=== PATIENT | female | born 1955 | race Caucasian/White ===

== ENCOUNTER 2019-06-28 16:20 | Emergency (ER) | payer OTHER ==
[2019-06-28] MEDS ORDERED: LIDOCAINE 1% MPF 5 ML VIAL ONE ×2 (16:46→17:01)
[2019-06-28] MEDS ORDERED: ACETAMINOPHEN 325 MG TABLET ONE (17:01)
--- NOTE | 2019-06-28 17:25 | RAD REPORT ---
EXAM DESCRIPTION: CT - Head Brain Wo Cont - 06/28/2019 5:01 pm CLINICAL HISTORY: Head injury status post fall. Headache COMPARISON: None. TECHNIQUE: Computed axial tomography of the head was obtained. IV contrast was not requested. All CT scans are performed using dose optimization technique as appropriate and may include automated exposure control or mA/KV adjustment according to patient size. FINDINGS: An intracranial bleed is not seen . The ventricles are normal in caliber. No extra-axial fluid collection is noted. Fluid within the sinuses/ mastoids is not seen. IMPRESSION: No acute intracranial abnormality is seen. If patient's symptoms persist MRI of the bra in would be recommended.
--- NOTE | 2019-06-28 17:26 | RAD REPORT ---
EXAM DESCRIPTION: RAD - Hand Right 3 View - 06/28/2019 5:11 pm CLINICAL HISTORY: Right hand pain status post injury FINDINGS: A mildly displaced fracture proximal aspect of the fifth proximal phalanx with angulation present at the fracture site. No dislocation
--- NOTE | 2019-06-28 17:59 | EDPHYS ---
Physician Documentation [facility] Name: Arpita Santo Age: 64 yrs Sex: Female : 1955 Arrival Date: 06/28/2019 Time: 16:22 Bed 24 Private MD: Dm Jolly E ED Physician Stan Beebe HPI: 06/28 16:45 This 64 yrs old Female presents to ER via Ambulatory with complaints of Fall pm1 Injury. 16:45 Details of fall: The patient fell from an upright position, while walking. Onset: The pm1 symptoms/episode began/occurred just prior to arrival. Associated injuries: The patient sustained injury to the head, laceration, right little finger, deformity, heel of right hand, abrasion. The patient has not experienced similar symptoms in the past. Patient was walking on the sidewalk, looked up and then tripped on uneven concrete. Hit her head on the sidewalk and braced her fall with right hand. Presenting with deformed right 5th finger and laceration above right lateral eyebrow. No LOC, neck pain, vomiting. Positive for headache at the laceration area. Historical: - Allergies: 16:33 No Known Allergies; sv - Home Meds: 16:33 timoxiphen [Active]; Effexor Oral [Active]; macaroot [Active]; sv - PMHx: 16:33 RLS; sv - PSHx: 16:33 left mastectomy; ear; Knee surgery; oral; sv - Immunization history:: Flu vaccine is up to date. - Social history:: Smoking status: Patient/guardian denies using tobacco. - Ebola Screening: : No symptoms or risks identified at this time. ROS: 16:48 Constitutional: Negative for fever, chills, and weight loss, Eyes: Negative for injury, pm1 pain, redness, and discharge, ENT: Negative for injury, pain, and discharge, Neck: Negative for injury, pain, and swelling, Cardiovascular: Negative for chest pain, palpitations, and edema, Respiratory: Negative for shortness of breath, cough, wheezing, and pleuritic chest pain, Abdomen/GI: Negative for abdominal pain, nausea, vomiting, diarrhea, and constipation, Back: Negative for injury and pain. 16:48 MS/extremity: Positive for deformity, pain, of the right little finger, Negative for paresthesias, tingling. 16:48 Skin: Positive for abrasion(s), of the heel of right hand and laceration above right eyebrow. 16:48 Neuro: Positive for headache, Negative for dizziness, numbness, weakness. Exam: 16:48 Constitutional: This is a well developed, well nourished patient who is awake, alert, pm1 and in no acute distress. 16:48 Eyes: Pupils equal round and reactive to light, extra-ocular motions intact. Lids and lashes normal. Conjunctiva and sclera are non-icteric and not injected. Cornea within normal limits. Periorbital areas with no swelling, redness, or edema. ENT: Nares patent. No nasal discharge, no septal abnormalities noted. Tympanic membranes are normal and external auditory canals are clear. Oropharynx with no redness, swelling, or masses, exudates, or evidence of obstruction, uvula midline. Mucous membranes moist. Neck: Trachea midline, no thyromegaly or masses palpated, and no cervical lymphadenopathy. Supple, full range of motion without nuchal rigidity, or vertebral point tenderness. No Meningismus. Chest/axilla: Normal chest wall appearance and motion. Nontender with no deformity. No lesions are appreciated. Cardiovascular: Regular rate and rhythm with a normal S1 and S2. No gallops, murmurs, or rubs. Normal PMI, no JVD. No pulse deficits. Respiratory: Lungs have equal breath sounds bilaterally, clear to auscultation and percussion. No rales, rhonchi or wheezes noted. No increased work of breathing, no retractions or nasal flaring. Abdomen/GI: Soft, non-tender, with normal bowel sounds. No distension or tympany. No guarding or rebound. No evidence of tenderness throughout. Back: No spinal tenderness. No costovertebral tenderness. Full range of motion. 16:48 Head/face: Noted is no obvious of injury or deformity except a laceration(s), 2 cm(s), of the outer aspect of right eyebrow. 16:48 Skin: Appearance: normal except for affected area, injury, abrasion(s), small abrasion noted, of the heel of right hand, laceration(s), the wound is approximately 2 cm(s), of the outer aspect of right eyebrow. Vital Signs: 16:30 BP 114 / 76; Pulse 76; Resp 20; Temp 98.4; Pulse Ox 99% ; rv 16:33 Weight 78.02 kg; Height 5 ft. 7 in. (170.18 cm); Pain 3/10; sv 18:00 BP 123 / 95; Pulse 80; Resp 16; Pulse Ox 100% ; rv 16:33 Body Mass Index 26.94 (78.02 kg, 170.18 cm) sv Procedures: 16:58 Reduction: of the right little finger, using traction, Patient tolerated well. digital pm1 block with lidocaine 1%, 1 mL. Laceration: 17:52 Wound Repair of 1.5cm ( 0.6in ) subcutaneous laceration to outer aspect of right pm1 eyebrow. Irregularly shaped.. Distal neuro/vascular/tendon intact. Anesthesia: Local anesthetic administered with 1 mls of 1% lidocaine. Wound prep: Extensive cleansing with hibiclenz by nurse, Wound irrigation with saline by nurse, Wound explored extensively, Copious irrigation. Skin closed with 6 6-0 Prolene using simple sutures and sterile technique. Dressed with Neosporin. Patient tolerated well. MDM: 16:33 Patient medically screened. pm1 16:48 Data reviewed: vital signs. Data interpreted: Pulse oximetry: on room air is 99 %. pm1 Interpretation: normal. 16:48 ED course: Patient does not want any medication for pain other than tylenol. pm1 17:52 Counseling: I had a detailed discussion with the patient and/or guardian regarding: the pm1 historical points, exam findings, and any diagnostic results supporting the discharge/admit diagnosis, radiology results, the need for outpatient follow up, to return to the emergency department if symptoms worsen or persist or if there are any questions or concerns that arise at home. 06/28 16:41 Order name: CT Head Brain wo Cont; Complete Time: 17:51 pm1 06/28 16:41 Order name: Hand Right 3 View XRAY; Complete Time: 17:51 pm1 Administered Medications: 16:57 Not Given (recent vaccination): Tetanus-Diphtheria Toxoid Adult 0.5 ml IM once rv 17:21 Drug: Tylenol 650 mg Route: PO; rv 18:23 Follow up: Response: No adverse reaction rv 17:33 Drug: Lidocaine (1 %) 5 ml Volume: 5 ml; Route: Infiltration; rv 18:23 Follow up: Response: No adverse reaction rv Disposition: 18:30 Co-signature as Attending Physician, Stan Beebe MD. rn Disposition: 06/28/19 17:58 Discharged to Home. Impression: Laceration without foreign body of other part of head - right eyebrow, Displaced fracture of proximal phalanx of right little finger, Abrasion of hand. - Condition is Stable. - Discharge Instructions: Cast or Splint Care, Adult, Finger Fracture, Head Injury, Adult, Facial Laceration. - Prescriptions for Tylenol- Codeine #3 300-30 mg Oral Tablet - take 2 tablets by ORAL route every 6 hours As needed; 20 tablet. - Medication Reconciliation Form, Thank You Letter, Antibiotic Education, Prescription Opioid Use form. - Follow up: Emergency Department; When: As needed; Reason: Worsening of condition. Follow up: Private Physician; When: 4-5 days; Reason: Recheck today's complaints, Continuance of care, Re-evaluation by your physician. Follow up: Bradley Chaudhari MD; When: 2 - 3 days; Reason: Recheck today's complaints, Continuance of care, Re-evaluation by your physician. - Problem is new. - Symptoms have improved. - Notes: Please get the sutures on your face removed in 4-5 days Signatures: Dispatcher [employer] EDSheridan Miller, RN Stan Iverson MD MD rn Marinas, Patrick, ALLIE [employer]ING [employer]TER HELPER pm1 Song Lacy RN RN rv Corrections: (The following items were deleted from the chart) 18:09 17:58 06/28/2019 17:58 Discharged to Home. Impression: Laceration without foreign body pm1 of other part of head - right eyebrow; Displaced fracture of proximal phalanx of right little finger; Abrasion of hand. Condition is Stable. Forms are Medication Reconciliation Form, Thank You Letter, Antibiotic Education, Prescription Opioid Use. Follow up: Emergency Department; When: As needed; Reason: Worsening of condition. Follow up: Private Physician; When: 4-5 days; Reason: Recheck today's complaints, Continuance of care, Re-evaluation by your physician. Problem is new. Symptoms have improved. pm1 18:24 18:09 06/28/2019 17:58 Discharged to Home. Impression: Laceration without foreign body rv of other part of head - right eyebrow; Displaced fracture of proximal phalanx of right little finger; Abrasion of hand. Condition is Stable. Discharge Instructions: Cast or Splint Care, Adult, Finger Fracture, Head Injury, Adult, Facial Laceration. Prescriptions for Tylenol-Codeine #3 300-30 mg Oral Tablet - take 2 tablets by ORAL route every 6 hours As needed; 20 tablet. and Forms are Medication Reconciliation Form, Thank You Letter, Antibiotic Education, Prescription Opioid Use. Follow up: Emergency Department; When: As needed; Reason: Worsening of condition. Follow up: Private Physician; When: 4-5 days; Reason: Recheck today's complaints, Continuance of care, Re-evaluation by your physician. Follow up: Bradley Chaudhari; When: 2 - 3 days; Reason: Recheck today's complaints, Continuance of care, Re-evaluation by your physician. Problem is new. Symptoms have improved. pm1
--- NOTE | 2019-06-28 17:59 | ER ---
Nurse's Notes [facility] Name: Arpita Santo Age: 64 yrs Sex: Female : 1955 Arrival Date: 06/28/2019 Time: 16:22 Bed 24 Private MD: Dm Jolly E Diagnosis: Laceration without foreign body of other part of head-right eyebrow;Displaced fracture of proximal phalanx of right little finger;Abrasion of hand Presentation: 06/28 16:29 Presenting complaint: Patient states: was walking outside and stubbed her toe on the sv ground, fell down; right eyebrow laceration, right hand laceration with pain, reports disorientation for a little bit, denies LOC. Care prior to arrival: None. Mechanism of Injury: Fall from standing position. Trauma event details: Injury occurred in the [facility], Injury occurred: outside Injury occurred: June 28, 2019. 16:29 Acuity: CASSANDRA 3 sv 16:29 Method Of Arrival: Ambulatory sv 17:04 Transition of care: patient was not received from another setting of care. Onset of rv symptoms was June 28, 2019 at 16:30. Risk Assessment: Do you want to hurt yourself or someone else? Patient reports no desire to harm self or others. Initial Sepsis Screen: Does the patient meet any 2 criteria? No. Patient's initial sepsis screen is negative. Does the patient have a suspected source of infection? No. Patient's initial sepsis screen is negative. Trauma Activation: Not Applicable Physician: ED Physician; Name: ; Notified At: ; Arrived At: Physician: General Surgeon; Name: ; Notified At: ; Arrived At: Physician: Radiology; Name: ; Notified At: ; Arrived At: Physician: Respiratory; Name: ; Notified At: ; Arrived At: Physician: Lab; Name: ; Notified At: ; Arrived At: Historical: - Allergies: 16:33 No Known Allergies; sv - Home Meds: 16:33 timoxiphen [Active]; Effexor Oral [Active]; macaroot [Active]; sv - PMHx: 16:33 RLS; sv - PSHx: 16:33 left mastectomy; ear; Knee surgery; oral; sv - Immunization history:: Flu vaccine is up to date. - Social history:: Smoking status: Patient/guardian denies using tobacco. - Ebola Screening: : No symptoms or risks identified at this time. Screenin:04 Abuse screen: Denies threats or abuse. Denies injuries from another. Nutritional rv screening: No deficits noted. Tuberculosis screening: No symptoms or risk factors identified. Fall Risk None identified. Assessment: 16:29 General: Appears in no apparent distress. comfortable, Behavior is calm, cooperative. rv Pain: Complains of pain in face and right arm. Neuro: Level of Consciousness is awake, alert, obeys commands, Oriented to person, place, time, situation. Cardiovascular: Patient's skin is warm and dry. Respiratory: Airway is patent. GI: No signs and/or symptoms were reported involving the gastrointestinal system. : No signs and/or symptoms were reported regarding the genitourinary system. EENT: No signs and/or symptoms were reported regarding the EENT system. Derm: Wound noted outer aspect of right eyebrow. Musculoskeletal: dislocated finger, 5th digit of the right hand. Vital Signs: 16:30 BP 114 / 76; Pulse 76; Resp 20; Temp 98.4; Pulse Ox 99% ; rv 16:33 Weight 78.02 kg; Height 5 ft. 7 in. (170.18 cm); Pain 3/10; sv 18:00 BP 123 / 95; Pulse 80; Resp 16; Pulse Ox 100% ; rv 16:33 Body Mass Index 26.94 (78.02 kg, 170.18 cm) sv ED Course: 16:22 Patient arrived in ED. mr 16:22 Dm Jolly MD is Private Physician. mr 16:29 Song Lacy RN is Primary Nurse. rv 16:31 Triage completed. sv 16:33 Anderson Sherman NP is PHCP. pm1 16:33 Stan Beebe MD is Attending Physician. pm1 16:34 Arm band placed on. sv 17:00 CT completed. Patient tolerated procedure well. Patient moved back from CT. bq 17:00 CT Head Brain wo Cont In Process Unspecified. EDMS 17:02 Assist provider with reduction of right little finger using manipulation, Set up for rv procedure. Performed by Anderson Sherman NP Immobilized with finger splint, Patient tolerated well. Patient did not have IV access during this emergency room visit. 17:05 Patient has correct armband on for positive identification. Bed in low position. Call rv light in reach. Side rails up X 1. Adult w/ patient. Pulse ox on. NIBP on. 17:10 Hand Right 3 View XRAY In Process Unspecified. EDMS 17:36 Assist provider with laceration repair on outer aspect of right eyebrow that was 2.5 rv cm. or less using sutures. Set up tray. Performed by Anderson Sherman ACCOUNT COLLECTOR Dressed with Patient tolerated well. 18:09 Bradley Chaudhari MD is Referral Physician. pm1 Administered Medications: 16:57 Not Given (recent vaccination): Tetanus-Diphtheria Toxoid Adult 0.5 ml IM once rv 17:21 Drug: Tylenol 650 mg Route: PO; rv 18:23 Follow up: Response: No adverse reaction rv 17:33 Drug: Lidocaine (1 %) 5 ml Volume: 5 ml; Route: Infiltration; rv 18:23 Follow up: Response: No adverse reaction rv Outcome: 17:58 Discharge ordered by MD. pm1 18:22 Discharged to home ambulatory, with family. rv 18:22 Condition: improved 18:22 Discharge instructions given to patient, Instructed on discharge instructions, follow up and referral plans. medication usage, wound care, Demonstrated understanding of instructions, follow-up care, medications, wound care, splint care, Prescriptions given X 1. 18:24 Patient left the ED. rv Signatures: Dispatcher [employer] EDMS Sheridan Green, RN HEIDY Eleni Ochoa Anderson Lujan NP ACCOUNT COLLECTOR pm1 Song Lacy RN RN rv Corrections: (The following items were deleted from the chart) 17:02 16:29 Musculoskeletal: No signs and/or symptoms reported regarding the musculoskeletal rv system. rv
[2019-06-28 18:29] VITALS: TEMP 98.4
[2019-06-28 18:31] VITALS: BP 123/95; O2SAT 100
== END 2019-06-28 18:24 | disposition home or self-care (01) ==
LOC: ER 16:20
PROC: 0JQ10ZZ Repair Face Subcutaneous Tissue and Fascia, Open Approach (ICD-10-PCS; principal; 2019-06-28)
PROC: 0PSTXZZ Reposition Right Finger Phalanx, External Approach (ICD-10-PCS; 2019-06-28)
DX: S62.616A Displaced fracture of proximal phalanx of right little finger, initial encounter for closed fracture (principal); S01.111A Laceration without foreign body of right eyelid and periocular area, initial encounter; S60.511A Abrasion of right hand, initial encounter; W01.0XXA Fall on same level from slipping, tripping and stumbling without subsequent striking against object, initial encounter; Y93.89 Activity, other specified; Y92.9 Unspecified place or not applicable
CPT/HCPCS: 70450; 99285